=== PATIENT | female | born 1950 ===

== ENCOUNTER 2018-11-13 06:20 | Day surgery (SDC) | payer OTHER ==
[2018-11-13] MEDS ORDERED: Propofol 10 mg/ml Inj (20 ML) ONE (08:02)
[2018-11-13] MEDS ORDERED: Lactated Ringer's 1,000 ML IV ONE (08:03)
[2018-11-13 08:52] VITALS: O2SAT 100
[2018-11-13 09:55] VITALS: BP 121/76; PULSE 75; RESP 18; TEMP 97.6
== END 2018-11-13 09:45 | disposition home or self-care (01) ==
LOC: C.ENDO 06:20
PROVIDERS: ATTEND Internal Medicine Gastroenterology
DX: K59.00 Constipation, unspecified (principal); K64.1 Second degree hemorrhoids; G47.00 Insomnia, unspecified; E78.5 Hyperlipidemia, unspecified; M85.80 Other specified disorders of bone density and structure, unspecified site; Z98.890 Other specified postprocedural states; Z79.899 Other long term (current) drug therapy
CPT/HCPCS: 45378; J2704; J7120

== ENCOUNTER 2018-11-16 09:42 | Emergency (ER) | payer OTHER ==
[2018-11-16 09:49] VITALS: RESP 20; TEMP 98.5
--- NOTE | 2018-11-16 10:25 | C.PDOC ---
History Of Present Illness 68 year old female with a history of high cholesterol and pelvic fracture presents to the emergency department with complaints of lower back pain since prior to arrival. Patient reports that [place] shopping [place] when she went to lift her shopping cart and heard a pop in her lower back. Patient denies numbness, weakness, and bowel/bladder dysfunction. Time Seen by Provider: 11/16/18 10:11 Chief Complaint (Nursing): Back Pain History Per: Patient History/Exam Limitations: no limitations Onset/Duration Of Symptoms: Hrs Current Symptoms Are (Timing): Still Present Quality Of Discomfort: "Pain" Previous Symptoms: Prior Injury Associated Symptoms: None Past Medical History Reviewed: Historical Data, Nursing Documentation, Vital Signs Vital Signs: Last Vital Signs Temp 98.5 F 11/16/18 09:48 Pulse 82 11/16/18 09:48 Resp 20 11/16/18 09:48 BP 131/79 11/16/18 09:48 Pulse Ox 100 11/16/18 09:48 - Medical History PMH: Hypercholesterolemia Denies: Chronic Kidney Disease Surgical History: No Surg Hx Family History: States: No Known Family Hx - Social History Hx Alcohol Use: No Hx Substance Use: No - Immunization History Hx Tetanus Toxoid Vaccination: No Hx Influenza Vaccination: No Hx Pneumococcal Vaccination: No Review Of Systems Except As Marked, All Systems Reviewed And Found Negative. Constitutional: Negative for: Fever, Chills Genitourinary: Negative for: Dysuria, Frequency, Incontinence Musculoskeletal: Positive for: Back Pain Neurological: Negative for: Weakness, Numbness Physical Exam - Physical Exam Appears: Non-toxic, No Acute Distress Skin: Normal Color, Warm, Dry Head: Atraumatic, Normacephalic Eye(s): bilateral: Normal Inspection, PERRL, EOMI Nose: Normal Oral Mucosa: Moist Neck: Normal, Supple Chest: Symmetrical, No Tenderness Cardiovascular: Rhythm Regular, No Murmur Respiratory: No Rales, No Rhonchi, No Wheezing Gastrointestinal/Abdominal: Soft, No Tenderness Back: Vertebral Tenderness (mildly tender to lower back at L4-L5) Extremity: Normal ROM Neurological/Psych: Oriented x3, Normal Speech, Normal Cognition, Normal Motor, Normal Sensation Gait: Steady ED Course And Treatment O2 Sat by Pulse Oximetry: 100 (RA) Pulse Ox Interpretation: Normal - Other Rad XR LS Spine X-Ray: Viewed By Me, Read By Radiologist Interpretation: Impression: No acute fracture. Medical Decision Making Medical Decision Making: Plan: Motrin 600mg PO XR LS Spine Disposition - Disposition [place] [facility] [place] [facility] [Outside] [facility] [place] [Outside] Disposition: HOME/ ROUTINE Disposition Time: 11:46 Condition: GOOD Additional Instructions: Follow up with your pcp in a few days and take motrin, flexeril as directed. Prescriptions: Cyclobenzaprine [Cyclobenzaprine HCl] 10 mg PO Q8 #15 tab Ibuprofen [Motrin] 600 mg PO Q6 #20 tab Instructions: Low Back Pain (DC) Forms: [employer] (Thai) - Clinical Impression Clinical Impression: Low back pain - Scribe Statement The provider has reviewed the documentation as recorded by the Scribe (Edi Quesada) Provider Attestation: All medical record entries made by the Scribe were at my direction and personally dictated by me. I have reviewed the chart and agree that the record accurately reflects my personal performance of the history, physical exam, medical decision making, and the department course for this patient. I have also personally directed, reviewed, and agree with the discharge instructions and disposition.
--- NOTE | 2018-11-16 11:35 | RAD ---
Date of service: 11/16/2018 PROCEDURE: Radiographs of the Lumbar Spine. HISTORY: r/o Fx COMPARISON: No prior. FINDINGS: BONES: The vertebral bodies are maintained in height. The transverse processes and posterior elements appear intact. There is mild levo scoliotic curvature. Patient is status post ORIF for multiple pelvic fractures. DISC SPACES: Unremarkable. OTHER FINDINGS: Vena caval filter noted. IMPRESSION: No acute fracture.
[2018-11-16 11:46] VITALS: BP 113/73; PULSE 72
[2018-11-17 21:21] VITALS: O2SAT 100
== END 2018-11-16 11:46 | disposition home or self-care (01) ==
LOC: C.ER 09:42
DX: M54.5 Low back pain (principal)